=== PATIENT | female | born 1980 | race Caucasian/White ===

== ENCOUNTER → 2018-05-24 | Outpatient (CLI) | payer SELFPAY ==
[2018-05-24 11:22] LABS: BASOPHILS ABSOLUTE AUTO 0.07 K/mm3 (0.00-0.23); BASOPHILS PERCENT AUTO 1 % (0-2); EOSINOPHILS ABSOLUTE AUTO 0.05 K/mm3 (0.00-0.68); EOSINOPHILS PERCENT AUTO 1 % (0-6); Hematocrit 33.2 % (33.0-51.0); Hemoglobin 9.4 g/dL (11.5-16.0); IMMATURE GRAN ABSOLUTE AUTO 0.03 K/mm3 (0.00-0.10); IMMATURE GRAN PERCENT AUTO 0 % (0-1); LYMPHOCYTES ABSOLUTE AUTO 1.38 K/mm3 (0.84-5.20); LYMPHOCYTES PERCENT AUTO 20 % (21-46); MONOCYTES ABSOLUTE AUTO 0.44 K/mm3 (0.16-1.47); MONOCYTES PERCENT AUTO 6 % (4-13); Mean Corpuscular HGB 19.3 pg (26.0-34.0); Mean Corpuscular HGB Conc 28.3 g/dL (31.5-36.5); Mean Corpuscular Volume 68 fL (80-100); Mean Platelet Volume 9.7 fL (9.1-12.4); NEUTROPHILS ABSOLUTE AUTO 4.92 K/mm3 (1.96-9.15); NEUTROPHILS PERCENT AUTO 72 % (41-73); Platelet Count 269 K/mm3 (150-400); RDW Coefficient Variation 18.8 % (11.7-14.2); RDW Standard Deviation 45.9 fL (35.1-46.3); Red Blood Cell Count 4.87 M/mm3 (3.80-5.20); White Blood Cell Count 6.89 K/mm3 (4.00-11.30)
[2018-05-24 11:44] LABS: CHOL/HDL RATIO 3.8; Cholesterol 190 mg/dL (50-200); HDL Cholesterol 50 mg/dL (>39); LDL/HDL RATIO 2.5; Low Density Lipoprotein Chol 125 mg/dL (0-110); Triglycerides 77 mg/dL (30-140); Very Low Density Lipoprot Chol 15 mg/dL (6-28)
[2018-05-29 14:09] LABS: 25-HYDROXY, VITAMIN D 27 ng/mL (.); 25-HYDROXY, VITAMIN D-2 <1.0 ng/mL (.); 25-HYDROXY, VITAMIN D-3 26 ng/mL (.)
[2018-05-30 17:08] LABS: % FREE TESTOSTERONE (DIALYSIS) 1.3 % (.)
== END ==
LOC: LAB 11:07 → LAB SHORT 11:07
PROVIDERS: Family Medicine
DX: L68.0 Hirsutism (principal); R53.83 Other fatigue; E78.49 Other hyperlipidemia; D64.89 Other specified anemias; R63.5 Abnormal weight gain
CPT/HCPCS: 80061; 82306; 83001; 83002; 84402; 84443; 85025

== ENCOUNTER 2018-07-12 08:21 | Inpatient (IN) | payer BC ==
[~2018-07-12] VITALS: Ht 175.3 cm; Wt 136.5 kg
[2018-07-12] MEDS ORDERED: IRON150C PO (08:53)
--- NOTE | 2018-07-12 09:27 | NUR ---
PATIENT GAVE PERMISSION FOR ME TO CARE FOR HER TODAY 07/12/18. History, Chart, Medications and Allergies reviewed before start of procedure.Patient confirms NPO status and agrees with scheduled surgery. Patient reports completing Chlorhexadine shower X2 prior to admission to hospital.Surgical site prepped with 2% Chlorhexidine cloth wipe. Lungs clear T/O to Auscultation.
--- NOTE | 2018-07-12 20:00 | NUR ---
phsycian communication 1999 DR. RODAS NOTIFIED VIA TELEPHONE PT HAS NOT BEEN OOB YET AND IS NOT WILLING TO GET UP AT THIS TIME. NOTIFIED PT LYING QUITELY IN BED WITH EYES CLOSED WHEN OBSERVED FROM DOOR; PT C/O NAUSEA AND PAIN WHEN ENGAGED. NOTIFIED OF WASH DRILLER ORDER AND START OF TORADOL AT THIS TIME. NOTIFIED NO CONCERNING VS. NOTIFIED PT STS SHE WANTS TO BE FULL CODE AND ORDER RECIEVED FOR CODE STATUS. WCTM AND ENCOURAGE MOBILITY.
--- NOTE | 2018-07-13 05:02 | NUR ---
SHIFT SUMMARY PT A&O T/O SHIFT. POD#1 TOTAL HYSTERECTOMY; SCANT SEROSANG DRAINAGE TO LOW ABD TRANSVERSE INSICION DRESSING DRY AND UNCHANGED T/O SHIFT. SMALL AMOUNT OF VAGINAL BLEEDING AT START OF SHIFT; SCANT THIS AM. ABD SOFT; BT X4; NO FLATUS; NAUSEA RESOLVING EARLY THIS AM; MANAGED PER EMAR. PAIN MANAGED PER EMAR WITH CONSULTING BUSINESS DEVELOPER AND TORADOL. IV GTT PER EMAR. RA; CONT. OXIMETRY IN PLACE; SATS >92% T/O SHIFT; PT DENIES SOB AND CP. PT UP TO CHAIR X1 FOR ABOUT 15 MIN; TOLERATED WELL. SCD'S TO BLE'S. CALL LIGHT IN REACH; PT DEMONSTRATES USE. WCTM UNTIL REPORT TO DAY SHIFT RN.
[2018-07-13 05:56] LABS: BASOPHILS ABSOLUTE AUTO 0.03 K/mm3 (0.00-0.23); BASOPHILS PERCENT AUTO 0 % (0-2); EOSINOPHILS PERCENT AUTO 0 % (0-6); Hemoglobin 9.6 g/dL (11.5-16.0); IMMATURE GRAN ABSOLUTE AUTO 0.07 K/mm3 (0.00-0.10); IMMATURE GRAN PERCENT AUTO 1 % (0-1); LYMPHOCYTES PERCENT AUTO 11 % (21-46); MONOCYTES ABSOLUTE AUTO 1.06 K/mm3 (0.16-1.47); MONOCYTES PERCENT AUTO 8 % (4-13); Mean Platelet Volume 10.2 fL (9.1-12.4); NEUTROPHILS ABSOLUTE AUTO 10.32 K/mm3 (1.96-9.15); NEUTROPHILS PERCENT AUTO 80 % (41-73); Platelet Count 190 K/mm3 (150-400); White Blood Cell Count 12.88 K/mm3 (4.00-11.30)
[2018-07-13 06:04] LABS: Hematocrit 31.4 % (33.0-51.0); Mean Corpuscular HGB 23.2 pg (26.0-34.0); Mean Corpuscular HGB Conc 30.6 g/dL (31.5-36.5); Mean Corpuscular Volume 76 fL (80-100); Red Blood Cell Count 4.14 M/mm3 (3.80-5.20)
[2018-07-13] MEDS ORDERED: Percocet 5-3251 EACH PO (17:49)
--- NOTE | 2018-07-13 17:55 | NUR ---
DISCHARGE: PT DC TO HOME WITH SPOUSE AT THIS TIME. IV DC'D WNL. PT PAIN CONTROLLED AND PASSING FLATUS. SCRIPT GIVEN. VERBALIZED UNDERSTANDING OF MEDICATIONS, FOLLOW UP AND INSTRUCTIONS. LEFT VIA WHEELCHAIR TO CAR WITH BELONGINGS.
== END 2018-07-13 18:00 | disposition home or self-care (01) | DRG 743 ==
LOC: SURS 08:21 → PRE IP 10:15 → SURS 13:22
PROVIDERS: ADMIT Obstetrics & Gynecology
PROC: 0UT90ZZ Resection of Uterus, Open Approach (ICD-10-PCS; principal; 2018-07-12 10:15)
PROC: 0U9G7ZZ Drainage of Vagina, Via Natural or Artificial Opening (ICD-10-PCS; 2018-07-12 10:15)
DX: N80.9 Endometriosis, unspecified (principal); N83.9 Noninflammatory disorder of ovary, fallopian tube and broad ligament, unspecified; N89.8 Other specified noninflammatory disorders of vagina
CPT/HCPCS: 36415; 85025; 88307; J0690; J1100; J1885; J2250; J2405; J2550; J2704; J2710; J2765; J3010; J7120

== ENCOUNTER → 2021-01-14 | Outpatient (CLI) | payer BC ==
[~2021-01-14] MED LIST: IRON150C PO; Percocet 5-3251 EACH PO
[2021-01-14 15:54] LABS: BASOPHILS ABSOLUTE AUTO 0.07 K/mm3 (0.00-0.23); BASOPHILS PERCENT AUTO 1 % (0-2); EOSINOPHILS ABSOLUTE AUTO 0.14 K/mm3 (0.00-0.68); EOSINOPHILS PERCENT AUTO 2 % (0-6); Hematocrit 44.2 % (33.0-51.0); Hemoglobin 14.2 g/dL (11.5-16.0); IMMATURE GRAN ABSOLUTE AUTO 0.07 K/mm3 (0.00-0.10); IMMATURE GRAN PERCENT AUTO 1 % (0-1); LYMPHOCYTES ABSOLUTE AUTO 1.59 K/mm3 (0.84-5.20); LYMPHOCYTES PERCENT AUTO 21 % (21-46); MONOCYTES ABSOLUTE AUTO 0.49 K/mm3 (0.16-1.47); MONOCYTES PERCENT AUTO 6 % (4-13); Mean Corpuscular HGB 28.3 pg (26.0-34.0); Mean Corpuscular HGB Conc 32.1 g/dL (31.5-36.5); Mean Corpuscular Volume 88 fL (80-100); Mean Platelet Volume 9.9 fL (9.1-12.4); NEUTROPHILS ABSOLUTE AUTO 5.28 K/mm3 (1.96-9.15); NEUTROPHILS PERCENT AUTO 69 % (41-73); Platelet Count 240 K/mm3 (150-400); RDW Coefficient Variation 13.3 % (11.7-14.2); RDW Standard Deviation 42.9 fL (35.1-46.3); Red Blood Cell Count 5.02 M/mm3 (3.80-5.20); White Blood Cell Count 7.64 K/mm3 (4.00-11.30)
[2021-01-14 16:43] LABS: Alanine Aminotransfer (ALT/SGP 36 U/L (12-78); Albumin, Blood 3.7 g/dL (3.4-5.0); Albumin/Globulin Ratio 0.9 (0.8-1.8); Alk Phos 85 U/L (50-136); Anion Gap 7 mmol/L (6-16); Aspartate Aminotrans (AST/SGOT 18 U/L (12-37); Bilirubin, Total 0.4 mg/dL (0.1-1.0); Blood Urea Nitrogen 9 mg/dL (8-24); Bun/Creatinine Ratio 12.3 (12.0-20.0); CO2, Blood 22 mmol/L (21-32); Calcium, Blood 9.2 mg/dL (8.5-10.1); Chloride, Blood 110 mmol/L (98-108); Creatinine, Blood 0.73 mg/dL (0.40-1.00); Globulin, Blood 3.9 g/dL (2.2-4.0); Glomerular Filtration Rate >60 (60-); Glucose, Blood 96 mg/dL (70-99); Potassium, Blood 3.9 mmol/L (3.5-5.5); Sodium, Blood 139 mmol/L (136-145); Total Protein, Blood 7.6 g/dL (6.4-8.2)
== END ==
LOC: LAB 14:07 → LAB SHORT 14:07
PROVIDERS: Family Medicine
DX: F41.9 Anxiety disorder, unspecified (principal); N94.89 Other specified conditions associated with female genital organs and menstrual cycle; R10.2 Pelvic and perineal pain
CPT/HCPCS: 80053; 84443; 85025; 86304

== ENCOUNTER → 2023-03-27 | Outpatient (CLI) | payer BC | LOC: LAB 10:41 → LAB SHORT 10:41 | DX: Z72.51 High risk heterosexual behavior (principal); R30.0 Dysuria | CPT/HCPCS: 87086 ==

== ENCOUNTER → 2023-03-28 | Outpatient (CLI) | payer BC ==
[2023-03-30 17:36] LABS: APTIMA MEDIA TYPE Urine; C. TRACHOMATIS BY TMA Negative (Negative); N. GONORRHOEAE BY TMA Negative (Negative); SPECIMEN SOURCE Urine
== END ==
LOC: LAB 06:00 → LAB SHORT 06:00
PROVIDERS: Chiropractor
DX: Z72.51 High risk heterosexual behavior (principal)
CPT/HCPCS: 87491; 87591